=== PATIENT | female | born 1940 | race Caucasian/White ===

== ENCOUNTER 2020-11-14 10:21 | Emergency (ER) | payer MEDICARE | END 2020-11-14 10:58 | disposition home or self-care (01) | LOC: CSHERS 10:21 | DX: M54.9 Dorsalgia, unspecified (principal); I10 Essential (primary) hypertension; J45.909 Unspecified asthma, uncomplicated; Z79.82 Long term (current) use of aspirin; Z79.899 Other long term (current) drug therapy | CPT/HCPCS: 93005 ==

== ENCOUNTER 2022-11-15 13:08 | Outpatient (CLI) | payer MEDICARE | END 2022-11-15 13:09 | disposition home or self-care (01) | LOC: CSHMRI 13:08 | PROVIDERS: ATTEND Nurse Practitioner Family | DX: M51.16 Intervertebral disc disorders with radiculopathy, lumbar region (principal); M48.061 Spinal stenosis, lumbar region without neurogenic claudication; M84.48XA Pathological fracture, other site, initial encounter for fracture | CPT/HCPCS: 72148 ==

== ENCOUNTER → 2025-05-10 | Emergency (ER) | payer MEDICARE | LOC: CSHERS 21:31 | DX: Z53.21 Procedure and treatment not carried out due to patient leaving prior to being seen by health care provider (principal) ==